=== PATIENT | male | born 1970 | race Caucasian/White ===

== ENCOUNTER 2019-10-01 21:51 | Outpatient (CLI) | payer OTHER, SELFPAY ==
--- NOTE | 2019-10-01 | XRR_ITS ---
PROCEDURE INFORMATION: Exam: XR Chest, 2 Views Exam date and time: 10/01/2019 11:42 PM Age: 49 years old Clinical indication: Screening exam; Other screening; Prior surgery; Surgery date: 6+ months; Additional info: Radon exposure TECHNIQUE: Imaging protocol: XR of the chest Views: 2 views. COMPARISON: CR Chest 2 views* [id number] 08/08/2018 5:15 PM FINDINGS: Lungs: Unremarkable. No consolidation. Pleural space: Unremarkable. No pleural effusion. No pneumothorax. Heart/Mediastinum: Unremarkable. No cardiomegaly. Bones/joints: Unremarkable. XR/XR chest 2V* [id number] IMPRESSION: No acute findings.
== END 2019-10-01 21:52 | disposition home or self-care (01) ==
PROVIDERS: Family Provider Family Medicine; PCP Family Medicine; Visit Provider Family Medicine
DX: Z77.123 Contact with and (suspected) exposure to radon and other naturally occurring radiation (principal)
CPT/HCPCS: 71046

== ENCOUNTER 2020-11-11 06:00 | Outpatient (RCR) | payer OTHER, SELFPAY | END 2020-11-22 23:59 | disposition home or self-care (01) | LOC: SPT 06:00 | PROVIDERS: PCP Family Medicine; Referring Provider Family Medicine; Visit Provider Family Medicine | DX: M54.17 Radiculopathy, lumbosacral region (principal) | CPT/HCPCS: 97110; 97162 ==

== ENCOUNTER 2020-11-23 06:00 | Outpatient (RCR) | payer OTHER, SELFPAY | END 2020-12-11 10:17 | disposition home or self-care (01) | LOC: SPT 06:00 | PROVIDERS: PCP Family Medicine; Referring Provider Family Medicine; Visit Provider Family Medicine | DX: M54.17 Radiculopathy, lumbosacral region (principal) | CPT/HCPCS: 97110 ==

== ENCOUNTER 2023-12-27 21:39 | Observation (INO) | payer OTHER, SELFPAY ==
[2023-12-27 21:40] VITALS: BP 114/75; PULSE 85; RESP 18; TEMP 36.4; O2SAT 99
--- NOTE | 2023-12-27 21:43 | ECG_ITS ---
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 Measurements Intervals [place] Rate: 87 P: 33 [place]: 140 QRS: -33 QRSD: 138 T: 53 QT: 364 QTc: 439 Interpretive Statements SINUS RHYTHM LEFT AXIS DEVIATION [QRS AXIS < -30] RIGHT BUNDLE BRANCH BLOCK [120+ ms QRS DURATION, UPRIGHT V1, 40+ ms S IN I/aVL/V4/V5/V6] No previous ECG available for comparison Electronically Signed On 12-28-2023 7:25:33 CDT by Drew Jefferson M.D. [id number]
[2023-12-27 22:27] LABS: Basophils % 0.4 %; Eosinophils # 0.3 10^3/uL (0.0-0.8); Eosinophils % 2.5 %; Hematocrit 47.2 % (37-53); Lymphocytes # 1.2 10^3/uL (0.8-4.8); Lymphocytes % 11.5 %; Mean Corpuscular HGB Conc 32.4 g/dL (30-55); Mean Corpuscular Hemoglobin 29.2 pg (27-33); Mean Corpuscular Volume 90.1 fl (82-101); Mean Platelet Volume 8.5 fL (7.4-10.4); Monocytes # 0.6 10^3/uL (0.2-0.9); Monocytes % 5.7 %; Neutrophils # 8.45 10^3/uL (1.8-7.7); Neutrophils % 79.6 %; Nucleated Red Blood Cells % 0 %; Platelet Count 230 10^3/cmm (157-399); Red Blood Count 5.24 10^6/uL (3.85-5.65); Red Cell Distribution Width 11.8 % (12.1-15.1); White Blood Count 10.61 10^3/uL (3.29-11.43)
--- NOTE | 2023-12-27 22:32 | XRR_ITS ---
PROCEDURE INFORMATION: Exam: XR Chest Exam date and time: 12/27/2023 10:34 PM Age: 53 years old Clinical indication: Other: N/v; Additional info: Weakness TECHNIQUE: Imaging protocol: Radiologic exam of the chest. Views: 1 view. COMPARISON: CR XR chest 2V* [id number] 11/02/2022 7:58 AM FINDINGS: Lungs: Minimal left basilar atelectasis or scarring. No definitive consolidation. Pleural spaces: No pleural effusion or pneumothorax. Heart/Mediastinum: The cardiomediastinal silhouette is within normal limits. Bones/joints: No acute osseous abnormalities are seen. XR/XR chest 1V portable [id number] IMPRESSION: No acute cardiopulmonary disease.
--- NOTE | 2023-12-27 22:42 | ED_ITS ---
HPI - Syncope 2 General: Chief Complaint: Syncope Stated Complaint: N\V\Passed Out\Heart Condition Time Seen by Provider: 12/27/23 22:17 History of Present Illness: 53-year-old man who presents to the [facility] after having multiple syncopal episodes. 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 He was off tonight. He took the dog downstairs and when he came back up the stairs he started to feel lightheaded and woozy. He sat down at the table and he passed out. says he was out for maybe 2 minutes. He never stopped breathing. He then shortly after while trying to get dressed to come to the hospital had an episode of vomiting. says he passed out briefly again here in the waiting room here at the emergency room. He has a history of atrial fibrillation but has been off meds because he had not had issues with it since he had had weight loss with diet changes. No recent fevers. He does not have any abdominal pain. No chest pain. No shortness of breath. No palpitations. Currently no focal motor deficits. No altered mental status. Review of Systems 2 Narrative: Constitutional symptoms: Negative except as documented in HPI. Skin symptoms: Negative except as documented in HPI. Eye symptoms: Negative except as documented in HPI. ENMT symptoms: Negative except as documented in HPI. Respiratory symptoms: Negative except as documented in HPI. Cardiovascular symptoms: Negative except as documented in HPI. Gastrointestinal symptoms: Negative except as documented in HPI. Genitourinary symptoms: Negative except as documented in HPI. Musculoskeletal symptoms: Negative except as documented in HPI. Neurologic symptoms: Negative except as documented in HPI. Psychiatric symptoms: Negative except as documented in HPI. Endocrine symptoms: Negative except as documented in HPI. PFSH ED 2 PFSH: Medical History (Updated 12/28/23 @ 00:31 by Janie Victor MD) Tremor Essential hypertension Dyslipidemia Family History Father Atrial fibrillation Grandmother Atrial fibrillation PATERNAL Mother Hypertension Social History Smoking and tobacco/nicotine status: former use of tobacco/nicotine Household members: spouse Marital status: Physical Exam 2 Narrative: EXAM NARRATIVE: General: Alert, no acute distress. Skin: Warm, appears slightly pale and diaphoretic. Head: Normocephalic, atraumatic. Neck: Supple, trachea midline. Eye: Extraocular movements are intact. Ears, nose, mouth and throat: mucosa moist. Cardiovascular: Regular, Normal peripheral perfusion. Respiratory: Lungs are clear to auscultation, respirations are non-labored, breath sounds are equal, Symmetrical chest wall expansion. Gastrointestinal: Soft, Nontender, Non distended, Normal bowel sounds. Musculoskeletal: Normal ROM, no deformity. Neurological: Alert and oriented, No focal neurological deficit observed. Psychiatric: Cooperative, appropriate mood & affect. Course 2 Vital Signs: Vital signs: Vital Signs Temperature 97.5 F L 12/27/23 21:40 Pulse Rate 80 12/28/23 00:00 Respiratory Rate 25 H 12/28/23 00:00 Blood Pressure 104/64 12/28/23 00:00 Pulse Oximetry 96 12/28/23 00:00 Oxygen Delivery Me thod Room Air 12/28/23 00:00 MDM - Syncope Medical Decision Making Medical decision making: Differential diagnosis including but not limited to and based on the above HPI, review of systems and physical exam in this patient with syncope: Vasovagal, orthostatics hypotension, cardiac dysrhythmia, myocardial infarction, infection and hypotension, Orders placed to evaluate differential diagnosis based on the above differential, HPI and physical exam Chest x-ray: No acute process. No infiltrate. No pneumothorax. No cardiomegaly. This was reviewed and interpreted by myself the ER physician. EKG: Rate 87 time 2143 normal sinus rhythm, No ST-T changes, no ectopy, right bundle branch block, This was reviewed and interpreted by myself the ER physician at 2150 Lab Review: Laboratory results were reviewed and interpreted by myself the emergency room physician. Lab work is fairly unremarkable at this point. BUN/creatinine are 14 and 1.1. Hemoglobin is 15. Troponin is negative. I reviewed the patient's medical record. Reexamination: Patient remains fairly stable. His blood pressure still low so ordered fluids. No signs of infection. His urine is clear and his chest x-ray is clear. No increased work of breathing. No altered mental status. No focal motor deficits. Consultation: I spoke with the hospitalist on-call Dr. Henry. He agrees to observation overnight to rule out any kind of cardiac dysrhythmias that would have caused the syncopal events and see if he does not improve his blood pressure with fluids. Assessment and plan: Syncope Dehydration Hypotension ?1500 ml Normal saline bolus in the emergency room. -I discussed the patient with the hospitalist on-call who is admitting the patient. - Discussed findings and plan with patient. Answered any questions. - All laboratory values were reviewed and interpreted personally by myself, the ER physician - All imaging was reviewed and interpreted personally by myself, the ER physician. - Evaluation and treatment of this problem were appropriate in the emergency setting Lab Data 12/27/23 22:17 12/27/23 22:17 Radiology Impressions Chest X-Ray 12/27/23 22:32 IMPRESSION: No acute cardiopulmonary disease. Laboratory Results WBC 10.61 10^3/uL (3.29-11.43) 12/27/23 22:17 RBC 5.24 10^6/uL (3.85-5.65) 12/27/23 22:17 Hgb 15.30 g/dL (11.27-16.99) 12/27/23 22:17 Hct 47.2 % (37-53) 12/27/23 22:17 MCV 90.1 fl (82-101) 12/27/23 22:17 MCH 29.2 pg (27-33) 12/27/23 22:17 MCHC 32.4 g/dL (30-55) 12/27/23 22:17 RDW 11.8 % (12.1-15.1) L 12/27/23 22:17 Plt Count 230 10^3/cmm (157-399) 12/27/23 22:17 MPV 8.5 fL (7.4-10.4) 12/27/23 22:17 Neut % (Auto) 79.6 % 12/27/23 22:17 Lymph % (Auto) 11.5 % 12/27/23 22:17 [place] % (Auto) 5.7 % 12/27/23 22:17 Eos % (Auto) 2.5 % 12/27/23 22:17 Baso % (Auto) 0.4 % 12/27/23 22:17 Neut # (Auto) 8.45 10^3/uL (1.8-7.7) H 12/27/23 22:17 Lymph # (Auto) 1.2 10^3/uL (0.8-4.8) 12/27/23 22:17 [place] # (Auto) 0.6 10^3/uL (0.2-0.9) 12/27/23 22:17 Eos # (Auto) 0.3 10^3/uL (0.0-0.8) 12/27/23 22:17 Baso # (Auto) 0.0 10^3/uL (0.0-0.1) 12/27/23 22:17 Nucleated RBC % (auto) 0 % 12/27/23 22:17 Nucleated RBCs # 0.0 /100WBC 12/27/23 22:17 D-Dimer 0.56 ug/mLFEU (0-0.59) 12/27/23 22:17 Sodium 139 mmol/L (136-145) 12/27/23 22:17 Potassium 3.8 mmol/L (3.5-5.1) 12/27/23 22:17 Chloride 104 mmol/L (98-107) 12/27/23 22:17 Carbon Dioxide 21 mmol/L (22-29) L 12/27/23 22:17 Anion Gap 17.8 (5-19) 12/27/23 22:17 BUN 14 mg/dL (6-20) 12/27/23 22:17 Creatinine 1.1 mg/dL (0.7-1.2) 12/27/23 22:17 GFR Calculation 69.5 mL/min (90-130) L 12/27/23 22:17 Glucose 97 mg/dL (65-115) 12/27/23 22:17 Calculated Osmolality 288 mOsm/kg (285-295) 12/27/23 22:17 Lactic Acid 2.4 mmol/L (0.5-2.2) H 12/27/23 22:17 Calcium 9.4 mg/dL (8.5-10.5) 12/27/23 22:17 Total Bilirubin 0.5 mg/dL (0.15-1.2) 12/27/23 22:17 AST 26 U/L (0-40) 12/27/23 22:17 ALT 38 U/L (0-41) 12/27/23 22:17 Alkaline Phosphatase 51 U/L (40-130) 12/27/23 22:17 Troponin T Baseline 7 ng/L (0-15) 12/27/23 22:17 C-Reactive Protein 3.0 mg/L (0.0-4.9) 12/27/23 22:17 Total Protein 7.3 g/dL (6.6-8.7) 12/27/23 22:17 Albumin 4.4 g/dL (3.5-5.2) 12/27/23 22:17 Globulin 2.9 g/dL (1.3-4.6) 12/27/23 22:17 Urine Color Dark yellow (Yellow) 12/27/23 23:30 Urine Appearance Clear (CLEAR) 12/27/23 23:30 Urine pH 5 (5-7) 12/27/23 23:30 Ur Specific [place] 1.025 (1.005-1.030) 12/27/23 23:30 Urine Protein Neg (Negative) 12/27/23 23:30 Urine Glucose (UA) Norm (Normal) 12/27/23 23:30 Urine Ketones 1+ (Negative) H 12/27/23 23:30 Urine Blood Neg (Negative) 12/27/23 23:30 Urine Nitrate Negative (Negative) 12/27/23 23:30 Urine Bilirubin Neg (Negative) 12/27/23 23:30 Urine Urobilinogen Norm mg/dL (Negative) 12/27/23 23:30 Ur Leukocyte Esterase Negative (Negative) 12/27/23 23:30 Urine RBC 0-4 /hpf (0-2) H 12/27/23 23:30 Urine WBC 0-4 /hpf (0-5) H 12/27/23 23:30 Ur Squamous Epith Cells 0-4 /hpf (0-5) H 12/27/23 23:30 Amorphous Sediment Not Reportable 12/27/23 23:30 Urine Bacteria Trace /hpf (NONE) 12/27/23 23:30 Hyaline Casts 0-4 /lpf H 12/27/23 23:30 Urine Mucus 2+ /hpf 12/27/23 23:30 All radiology interpretation(s) finalized by discharge Discharge Plan Discharge Patient Disposition: Admitted As Inpatient Clinical Impression: Dehydration Syncope Qualifiers: Syncope type: unspecified Qualified Code(s): R55 - Syncope and collapse Hypotension Qualifiers: Hypotension type: unspecified hypotension type Qualified Code(s): I95.9 - Hypotension, unspecified Condition: Stable Coding Level of Care Code ED Spare Parts Clerk for Javi Cobb
[2023-12-27 22:43] VITALS: BP 104/62; BP 108/59; BP 113/62; PULSE 78; PULSE 82; PULSE 85
[2023-12-27 22:50] LABS: Lactic Sepsis W/Reflex 2.4 mmol/L (0.5-2.2)
[2023-12-27 22:56] LABS: Alanine Aminotransferase 38 U/L (0-41); Albumin Level 4.4 g/dL (3.5-5.2); Alkaline Phosphatase 51 U/L (40-130); Anion Gap 17.8 (5-19); Aspartate Amino Transferase 26 U/L (0-40); Blood Urea Nitrogen 14 mg/dL (6-20); Calcium 9.4 mg/dL (8.5-10.5); Carbon Dioxide 21 mmol/L (22-29); Chloride 104 mmol/L (98-107); Creatinine Clr Calc Pharmacy 93.5112; Globulin 2.9 g/dL (1.3-4.6); Glomerular Filtration Rate 69.5 mL/min (90-130); Glucose 97 mg/dL (65-115); Osmolality Calculated 288 mOsm/kg (285-295); Potassium 3.8 mmol/L (3.5-5.1); Sodium 139 mmol/L (136-145); Total Bilirubin 0.5 mg/dL (0.15-1.2); Total Protein 7.3 g/dL (6.6-8.7)
[2023-12-27 22:57] VITALS: BP 111/66; PULSE 85; RESP 18; O2SAT 98
[2023-12-27 22:58] LABS: D Dimer 0.56 ug/mLFEU (0-0.59)
[2023-12-27 23:00] VITALS: BP 95/58; PULSE 85; RESP 15; O2SAT 98
[2023-12-27 23:05] LABS: Troponin(5th) Baseline 7 ng/L (0-15)
[2023-12-27 23:30] VITALS: BP 101/56; PULSE 80; RESP 21; O2SAT 100
[2023-12-27] MEDS: ondansetron 2 mg/ML SDV 2 mL 8 MG IVP (23:35)
[2023-12-28] VITALS (10 sets, daily range): BP systolic 102–137; BP diastolic 62–86; PULSE 80–115; RESP 16–25; TEMP 37–38.1; O2SAT 91–98
[2023-12-28 00:05] LABS: Bilirubin Urine Neg (Negative); Blood Urine Neg (Negative); Glucose Urine UA Norm (Normal); Ketones Urine 1+ (Negative); Leukocyte Esterase Urine Negative (Negative); Nitrate Urine Negative (Negative); Protein Urine Neg (Negative); RBC Urine 0-4 /hpf (0-2); Specific Gravity, Urine 1.025 (1.005-1.030); Urine Appearance Clear (CLEAR); Urine Color Dark Yellow (Yellow); Urobilinogen Urine Norm (Negative); pH Urine 5 (5-7)
[2023-12-28 00:06] LABS: Add Urine Culture? No; Bacteria Urine TRACE /hpf; Hyaline Casts Urine 0-4 /lpf; Mucus Urine 2+ /hpf; Squamous Epithelial Cell Urine 0-4 /hpf (0-5); WBC Urine 0-4 /hpf (0-5)
[2023-12-28 00:24] LABS: Reflex Lactate Order REFLEX LACTIC ORDERD
--- NOTE | 2023-12-28 00:32 | P.HP_ITS ---
Providers/Chief Complaint 2 Primary Care Provider: Vic Rubio MD Chief Complaint: N\V\Passed Out\Heart Condition History of Present Illness Colin Higginbotham is a 53 year old male with past medical history significant for lone atrial fibrillation, tremor disorder, hypertension, dyslipidemia who presents to the emergency department with syncope. Patient reports he was in his usual state of health till about 8:30 PM last night. He gone outside to let the dog out when he became dizzy. Came back inside and called his to take care of the dog so he did sit down at the kitchen table. He subsequently syncopized. Spouse reports he was out for about 2 minutes. She called EMS and put on speaker phone. She got up and attempt to eventually. He remained dizzy and nauseous. He went to the restroom and had an episode of significant emesis. This is reportedly very atypical for patient. Upon arriving to the emergency department, patient became diaphoretic while waiting in triage. This was followed by another episode of syncope. He was unconscious for about a minute and a half staff assisted him into the emergency department rooms. He was throwing up during this time as well. Of note, patient endorses associated symptoms malaise and fatigue. He does note that for the past week he has been more dizzy than usual. 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 He is just came off a 4-day in a row shifts. Patient does have a history of atrial fibrillation. Follows with cardiology. He was previously on Cardizem. He eventually lost some weight and proved his diet. He went as needed Cardizem. States he no longer even uses the as needed Cardizem. He does take an aspirin daily. He reports he has had some intermittent chest pains which is typical for him. He reports a movement disorder/tremor. He follows with [facility] annually. He denies known history of seizure disorder. He denies any tongue biting with these 2 syncopal episodes. Denies urinary incontinence. Does note bowel incontinence with the first episode. Spouse is bedside and very supportive. She is unsure if there was convulsive like activity as things happen so quickly. In the emergency department, patient was found to have soft blood pressure. Heart rate normal. Labs showed mild metabolic acidosis with bicarb of 21 and lactic acidosis with lactate of 2.4. Troponin was within normal limits. ECG revealed sinus rhythm with a right bundle. Chest x-ray was negative for acute findings. Review of Systems 2 Narrative: A complete review of systems was obtained and is negative except as stated in HPI. Medications/Allergies Home Medications Medication Instructions Recorded Confirmed Last Taken Type aspirin 325 mg tablet 325 mg PO DAILY 12/28/19 01/09/22 Unknown History cholecalciferol (vitamin D3) 50 50 mcg PO DAILY 12/28/19 01/09/22 Unknown History mcg (2,000 unit) capsule clonazepam 0.5 mg tablet 0.5 mg PO TID 12/28/19 01/09/22 Unknown History hydrocodone 10 mg-acetaminophen 1 tab PO Q6H PRN 12/28/19 01/09/22 Unknown History 325 mg tablet baclofen 20 mg tablet 20 mg PO .PRN 01/07/21 01/09/22 Unknown History fluticasone propionate 50 1 spray intranasal DAILY 01/07/21 01/09/22 Unknown History mcg/actuation nasal spray,suspension ondansetron 4 mg disintegrating 4 mg PO Q8H 01/07/21 01/09/22 Unknown History tablet polyethylene glycol 3350 17 17 g PO DAILY 01/07/21 01/09/22 Unknown History gram/dose oral powder (Miralax) diltiazem HCl 60 mg tablet 30 mg (1/2 x 60 mg) PO BID 01/09/22 01/09/22 Unknown Rx palpitations #90 tabs melatonin 10 mg tablet 10 mg PO DAILY 01/09/22 01/09/22 Unknown History pseudoephedrine HCl 30 mg tablet 30 mg PO Q4H PRN 01/09/22 01/09/22 Unknown History (Sudafed) Allergies Allergy/AdvReac Type Severity Reaction Status Date / Time No Known Allergies Allergy Verified 12/27/23 21:49 PFSH Acute 2 PFSH: Medical History (Updated 12/28/23 @ 01:25 by Colin Henry MD) DJD (degenerative joint disease), lumbar Atrial fibrillation Tremor Essential hypertension Dyslipidemia Surgical History History of repair of pyloric stenosis Family History Father Atrial fibrillation Grandmother Atrial fibrillation PATERNAL Mother Hypertension Social History Smoking and tobacco/nicotine status: former use of tobacco/nicotine Household members: spouse Marital status: Vitals/I&O/Wt Last Vital Signs Temp 97.5 F L 12/27/23 21:40 Pulse 80 12/28/23 00:00 Resp 25 H 12/28/23 00:00 BP 104/64 12/28/23 00:00 Pulse Ox 96 12/28/23 00:00 O2 Del Method Room Air 12/28/23 00:00 Weight last 48 hrs Weight 97.976 kg Physical Exam 2 Narrative: General: Patient is awake. Appears fatigued, but very pleasant. Head: Normocephalic. Atraumatic. EOM intact. Neck: No JVD. Cardiovascular: RRR. No gallops. No murmurs. Trace lower extremity edema. Lungs: Clear to auscultation, no use of accessory muscles, no crackles or wheezes. Skin: No jaundice. No rashes. Abdomen: Normal bowel sounds, abdomen soft and nontender. Genito Urinary: Genital exam not performed since complaints not related. Rectal: Rectal exam not performed since no symptoms indicated blood loss. Extremities: No cyanosis or clubbing. Musculoskeletal: No swollen or erythematous joints. Neurological: Moves all 4 extremities. Occasional myoclonic like jerking of upper extremities. Data 12/27/23 22:17 12/27/23 22:17 Micro: Microbiology 12/27/23 23:20 Blood Culture - Preliminary Blood SPECIMEN COLLECTED 12/27/23 23:20 Blood Culture - Preliminary Blood SPECIMEN COLLECTED A&P Assessment and plan (1) Syncope: Recurrent syncope concerning for possible cardiac arrhythmia, less likely orthostasis or seizure Continuous telemetry monitoring Obtain echocardiogram Venous Doppler ultrasounds of the carotids May benefit from head imaging pending clinical course Fall precautions Up only with assistance Seizure precautions Serial troponins Antiemetics as needed Consider neurology consult pending clinical course Qualifiers: Syncope type: unspecified Qualified Code(s): R55 - Syncope and collapse (2) Atrial fibrillation: History of lone atrial fibrillation Not currently on rate or rhythm control agents Telemetry monitoring Continue home aspirin (3) Tremor: Follows with [facility] neurology department Continue clonazepam 0.5 mg every morning Continue clonazepam 1 mg every afternoon (4) Essential hypertension: Not on pharmacological therapy Blood pressures currently soft Status post 2 L IV bolus in ED Start maintenance fluids for tonight Monitor vitals closely (5) DJD (degenerative joint disease), lumbar: Continue home [place] Continue home baclofen (6) Dyslipidemia: Currently diet controlled Plan DVT prophylaxis: Lovenox CODE STATUS: Full code Attestations 2 Medical Necessity Statement*: Patient presents with recurrent syncope concerning for possible cardiac arrhythmia with expected hospitalization not to cross 2 midnights for IV fluids, serial labs, Doppler study, echo, continuous telemetry monitoring and further workup pending these results. Coding Level of Care Code Acute Code for Chg Fwd Diagnoses Syncope R55 Syncope type: unspecified Atrial fibrillation I48.91 Tremor R25.1 Essential hypertension I10 DJD (degenerative joint disease), lumbar M47.816 Dyslipidemia E78.5
--- NOTE | 2023-12-28 00:33 | ECG_ITS ---
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 Measurements Intervals [place] Rate: 81 P: 47 MO: 144 QRS: -15 QRSD: 128 T: 51 QT: 354 QTc: 412 Interpretive Statements SINUS RHYTHM RIGHT BUNDLE BRANCH BLOCK [120+ ms QRS DURATION, UPRIGHT V1, 40+ ms S IN I/aVL/V4/V5/V6] Compared to ECG 12/27/2023 21:43:11 Left-axis deviation no longer present Electronically Signed On 12-28-2023 7:27:42 CDT by Drew Jefferson M.D. [id number]
[2023-12-28 00:44] LABS: Lactic Acid level (Lactate) 2.4 mmol/L (0.5-2.2)
[2023-12-28] MEDS: ketorolac 30 mg/mL INJ 15 MG IVP (00:51)
[2023-12-28] MEDS: sodium chloride 0.9% 1,000 ML 999 ML IV (00:52)
[2023-12-28] MEDS: sodium chloride 0.9% 500 ML 999 ML IV (00:52)
--- NOTE | 2023-12-28 01:12 | USCV_ITS ---
AnahyColin Age: 53 Gender: M : 1970 Exam Date: 12/28/2023 03:11 Ordering Phys: Colin Henry MD Technologist: EULA Exam Location: [facility] [place] Indication: recurrent syncope BP: 104 / 64 HR: 90 Rhythm: Sinus Technical Quality: Adequate MEASUREMENTS (Male / Female) Normal Values 2D ECHO LV Diastolic Diameter PLAX 4.4 cm 4.2 - 5.9 / 3.9 - 5.3 cm IVS Diastolic Thickness 1.7 cm 0.6 - 1.0 / 0.6 - 0.9 cm IVS Systolic Thickness 2.4 cm LVPW Diastolic Thickness 1.5 cm 0.6 - 1.0 / 0.6 - 0.9 cm LVPW Systolic Thickness 1.9 cm LVOT Diameter 2.3 cm LV Ejection Fraction 2D Teich 63.3 % LV Ejection Fraction MOD 2C 60.1 % LV Ejection Fraction 2C AL 63.0 % LA Diameter 3.6 cm LA Sys Volume AL 61.4 cm cubed LA Sys Volume Index AL 27.1 cm cubed/m squared Aorta at Sinotubular Diameter 3.2 cm IVC Diameter 1.5 cm M-MODE LA Ao Ratio MM 1.0 AV Cusp Separation MM 2.2 cm DOPPLER AV Peak Velocity 129.0 cm/s LVOT Peak Velocity 101.0 cm/s AV Area Cont Eq vti 3.5 cm squared AV Area Cont Eq pk 3.1 cm squared MV Peak Velocity 85.0 cm/s MV Area PHT 5.4 cm squared Mitral E to A Ratio 1.0 TV Peak E Velocity 48.0 cm/s PV Peak Velocity 89.0 cm/s FINDINGS Left Ventricle Left ventricle is normal in size. LV systolic function is normal with EF of 60-65%. No regional wall motion abnormalities are seen. Right Ventricle Normal in size and function Right Atrium Normal in size Left Atrium Normal in size Mitral Valve Structurally normal mitral valve. Trace mitral regurgitation. Aortic Valve Structurally normal mitral aortic valve. No significant stenosis or regurgitation. Tricuspid Valve Insufficient TR jet to evaluate RVSP Pulmonic Valve Not well visualized Pericardium Normal Aorta Normal in size IVC Appears to be normal CONCLUSIONS LV systolic function is normal with EF of 60-65% Trace mitral regurgitation No comparison studies are available Drew Jefferson MD (Electronically Signed) Final Date: 28 December 2023 08:10 S
--- NOTE | 2023-12-28 01:12 | USCV_ITS ---
Colin Higginbotham Age: 53 Gender: M : 1970 Exam Date: 12/28/2023 02:36 Ordering Phys: Colin Henry MD Technologist: EULA [place] [facility] [place]ication: recurrent syncope Risk Factors: recurrent syncope Previous Vascular Surgery: none Right Brachial BP: 104 / 64 Left Brachial BP: / Right Left Velocity (cm/s) Spectral Plaque Velocity (cm/s) Spectral Plaque Syst/Diast Broadening Syst/Diast Broadening 122.20/14.60 None None Prox CCA 148.30/ 14.60 None None 118.30/18.50 None None Mid CCA 131.30/ 25.20 None None 118.30/15.90 Min None Distal CCA 129.20/ 23.10 Min None 119.60/23.70 Min None Prox ICA 122.80/ 32.60 Min None 97.80/ 21.60 Min None Mid ICA 93.70 / 30.20 Min None 82.10/ 27.90 Min None Distal ICA 44.10 / 12.90 None None 146.50 Min None ECA 100.20 Min None 1.00 ICA/CCA 1.00 Antegrade Vertebral Antegrade 57.70/ 19.10 cm/s 66.20/ 16.90 cm/s Tri Subclavian Tri 117.7 115.5 0 0 FINDINGS Comparison: none available. No significant elevation of systolic or diastolic velocities. Waveforms are normal. Minimal carotid plaque. CONCLUSIONS Bilateral ICA stenosis less than 50%. Minimal carotid atherosclerosis. Dr. Omaira Marley DO (Electronically Signed) Final Date: 28 December 2023 07:29 S
[2023-12-28 01:14] LABS: Troponin 5 2HR 6.17 ng/L (0-15); Troponin 5 2HR Delta -0.83 ABS# (0-10)
[2023-12-28] MEDS: CLONazepam 0.5 mg Tablet 1 MG PO (02:35)
[2023-12-28] MEDS: enoxaparin 40 mg/0.4 mL Syringe SUBCUT (02:36)
[2023-12-28] MEDS: dextrose 5%-sod chloride 0.45% 1,000 ML 75 ML IV (02:36)
[2023-12-28] MEDS: HYDROcodone-acetaminophen 10-325 mg Tablet 1 TAB PO ×3 (02:58→14:05)
[2023-12-28] MEDS: calcium carbonate 500 mg Chew Tablet 1000 MG PO ×2 (02:58→08:29)
[2023-12-28] MEDS: baclofen 10 mg Tablet 20 MG PO ×2 (02:59→11:01)
[2023-12-28 04:13] LABS: Basophils % 0.3 %; Eosinophils # 0.1 10^3/uL (0.0-0.8); Eosinophils % 0.7 %; Hematocrit 43.7 % (37-53); Lymphocytes # 0.3 10^3/uL (0.8-4.8); Lymphocytes % 3.5 %; Mean Corpuscular HGB Conc 32.7 g/dL (30-55); Mean Corpuscular Hemoglobin 29.5 pg (27-33); Mean Corpuscular Volume 90.3 fl (82-101); Mean Platelet Volume 8.5 fL (7.4-10.4); Monocytes # 0.2 10^3/uL (0.2-0.9); Monocytes % 3.1 %; Neutrophils # 6.94 10^3/uL (1.8-7.7); Neutrophils % 92.1 %; Nucleated Red Blood Cells % 0 %; Platelet Count 190 10^3/cmm (157-399); Red Blood Count 4.84 10^6/uL (3.85-5.65); Red Cell Distribution Width 11.7 % (12.1-15.1); White Blood Count 7.52 10^3/uL (3.29-11.43)
[2023-12-28 04:30] LABS: Troponin 5 6HR 6.73 ng/L (0-15); Troponin 5 6HR Delta -0.27 ng/L (0-12)
--- NOTE | 2023-12-28 04:33 | ECG_ITS ---
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 Measurements Intervals [place] Rate: 94 P: 43 NV: 156 QRS: -34 QRSD: 135 T: 45 QT: 334 QTc: 418 Interpretive Statements SINUS RHYTHM POSSIBLE LEFT ATRIAL ENLARGEMENT [-0.1mV P-WAVE IN V1/V2] LEFT AXIS DEVIATION [QRS AXIS < -30] RIGHT BUNDLE BRANCH BLOCK [120+ ms QRS DURATION, UPRIGHT V1, 40+ ms S IN I/aVL/V4/V5/V6] Compared to ECG 12/28/2023 00:50:48 Left-axis deviation now present Electronically Signed On 12-28-2023 7:27:29 CDT by Drew Jefferson M.D. [id number]
[2023-12-28 04:40] LABS: Alanine Aminotransferase 33 U/L (0-41); Albumin Level 4.1 g/dL (3.5-5.2); Alkaline Phosphatase 44 U/L (40-130); Anion Gap 15.3 (5-19); Aspartate Amino Transferase 22 U/L (0-40); Blood Urea Nitrogen 17 mg/dL (6-20); Calcium 8.7 mg/dL (8.5-10.5); Carbon Dioxide 22 mmol/L (22-29); Chloride 106 mmol/L (98-107); Creatinine Clr Calc Pharmacy 95.8478; Globulin 2.2 g/dL (1.3-4.6); Glomerular Filtration Rate 69.5 mL/min (90-130); Glucose 105 mg/dL (65-115); Magnesium 1.5 mg/dL (1.7-2.3); Osmolality Calculated 290 mOsm/kg (285-295); Phosphorus 1.8 mg/dL (2.5-4.5); Potassium 4.3 mmol/L (3.5-5.1); Sodium 139 mmol/L (136-145); Total Bilirubin 0.9 mg/dL (0.15-1.2); Total Protein 6.3 g/dL (6.6-8.7)
[2023-12-28] MEDS: CLONazepam 0.5 mg Tablet PO (05:53)
[2023-12-28] MEDS: aspirin 325 mg Tablet PO (08:29)
[2023-12-28] MEDS: ondansetron 4 MG Tablet PO (08:46)
--- NOTE | 2023-12-28 12:45 | PM.DCS ---
Discharge Providers Date of Admission: 12/28/23 01:29 Date of Discharge: December 28, 2023 Attending Provider at Admission: Colin Henry MD Attending Provider at Discharge: Clarisa Gallo MD Primary Care Provider: Vic Rubio MD Diagnoses at Discharge Discharge Diagnosis (1) Syncope: Status: Acute Qualifiers: Syncope type: unspecified Qualified Code(s): R55 - Syncope and collapse (2) Atrial fibrillation: Status: Acute (3) Tremor: Status: Acute (4) Essential hypertension: Status: Acute (5) DJD (degenerative joint disease), lumbar: Status: Acute (6) Dyslipidemia: Status: Acute Reason for Visit Reason for Visit: N\V\Passed Out\Heart Condition Discharge Data Studies Completed and Pending Completed Studies During Hospitalization Category Date Time Status XR chest 1V portable [id number] Stat Exams 12/27/23 22:32 Completed CV. echo complete* [id number] Stat Ultrasound 12/28/23 01:12 Completed US carotid duplex bilateral [CV carotid duplex BI* Ultrasound 12/28/23 01:12 Completed [id number]] Stat Pending at discharge Category Date Time Status Blood Culture Stat Lab 12/27/23 23:20 Results Respiratory Panel 2 Routine Lab 12/28/23 11:57 Uncollected Radiology Impressions Chest X-Ray 12/27/23 22:32 IMPRESSION: No acute cardiopulmonary disease. Laboratory Results WBC 7.52 10^3/uL (3.29-11.43) 12/28/23 03:59 RBC 4.84 10^6/uL (3.85-5.65) 12/28/23 03:59 Hgb 14.30 g/dL (11.27-16.99) 12/28/23 03:59 Hct 43.7 % (37-53) 12/28/23 03:59 MCV 90.3 fl (82-101) 12/28/23 03:59 MCH 29.5 pg (27-33) 12/28/23 03:59 MCHC 32.7 g/dL (30-55) 12/28/23 03:59 RDW 11.7 % (12.1-15.1) L 12/28/23 03:59 Plt Count 190 10^3/cmm (157-399) 12/28/23 03:59 MPV 8.5 fL (7.4-10.4) 12/28/23 03:59 Neut % (Auto) 92.1 % 12/28/23 03:59 Lymph % (Auto) 3.5 % 12/28/23 03:59 [place] % (Auto) 3.1 % 12/28/23 03:59 Eos % (Auto) 0.7 % 12/28/23 03:59 Baso % (Auto) 0.3 % 12/28/23 03:59 Neut # (Auto) 6.94 10^3/uL (1.8-7.7) 12/28/23 03:59 Lymph # (Auto) 0.3 10^3/uL (0.8-4.8) L 12/28/23 03:59 [place] # (Auto) 0.2 10^3/uL (0.2-0.9) 12/28/23 03:59 Eos # (Auto) 0.1 10^3/uL (0.0-0.8) 12/28/23 03:59 Baso # (Auto) 0.0 10^3/uL (0.0-0.1) 12/28/23 03:59 Nucleated RBC % (auto) 0 % 12/28/23 03:59 Nucleated RBCs # 0.0 /100WBC 12/28/23 03:59 D-Dimer 0.56 ug/mLFEU (0-0.59) 12/27/23 22:17 Sodium 139 mmol/L (136-145) 12/28/23 03:59 Potassium 4.3 mmol/L (3.5-5.1) 12/28/23 03:59 Chloride 106 mmol/L (98-107) 12/28/23 03:59 Carbon Dioxide 22 mmol/L (22-29) 12/28/23 03:59 Anion Gap 15.3 (5-19) 12/28/23 03:59 BUN 17 mg/dL (6-20) 12/28/23 03:59 Creatinine 1.1 mg/dL (0.7-1.2) 12/28/23 03:59 GFR Calculation 69.5 mL/min (90-130) L 12/28/23 03:59 Glucose 105 mg/dL (65-115) 12/28/23 03:59 Calculated Osmolality 290 mOsm/kg (285-295) 12/28/23 03:59 Lactic Acid 2.4 mmol/L (0.5-2.2) H 12/27/23 22:17 Lactic Acid (Sepsis) 2.4 mmol/L (0.5-2.2) H 12/27/23 23:15 Calcium 8.7 mg/dL (8.5-10.5) 12/28/23 03:59 Phosphorus 1.8 mg/dL (2.5-4.5) L 12/28/23 03:59 Magnesium 1.5 mg/dL (1.7-2.3) L 12/28/23 03:59 Total Bilirubin 0.9 mg/dL (0.15-1.2) 12/28/23 03:59 AST 22 U/L (0-40) 12/28/23 03:59 ALT 33 U/L (0-41) 12/28/23 03:59 Alkaline Phosphatase 44 U/L (40-130) 12/28/23 03:59 Troponin T Baseline 7 ng/L (0-15) 12/27/23 22:17 Troponin T 120 Minute 6.17 ng/L (0-15) 12/28/23 00:37 Delta Troponin T -0.83 ABS# (0-10) L 12/28/23 00:37 Troponin T Hi Sens 6Hr 6.73 ng/L (0-15) 12/28/23 03:59 Troponin T Hi Sens 6Hr Delta -0.27 ng/L (0-12) L 12/28/23 03:59 C-Reactive Protein 3.0 mg/L (0.0-4.9) 12/27/23 22:17 Total Protein 6.3 g/dL (6.6-8.7) L 12/28/23 03:59 Albumin 4.1 g/dL (3.5-5.2) 12/28/23 03:59 Globulin 2.2 g/dL (1.3-4.6) 12/28/23 03:59 Urine Color Dark yellow (Yellow) 12/27/23 23:30 Urine Appearance Clear (CLEAR) 12/27/23 23:30 Urine pH 5 (5-7) 12/27/23 23:30 Ur Specific [place] 1.025 (1.005-1.030) 12/27/23 23:30 Urine Protein Neg (Negative) 12/27/23 23:30 Urine Glucose (UA) Norm (Normal) 12/27/23 23:30 Urine Ketones 1+ (Negative) H 12/27/23 23:30 Urine Blood Neg (Negative) 12/27/23 23:30 Urine Nitrate Negative (Negative) 12/27/23 23:30 Urine Bilirubin Neg (Negative) 12/27/23 23:30 Urine Urobilinogen Norm mg/dL (Negative) 12/27/23 23:30 Ur Leukocyte Esterase Negative (Negative) 12/27/23 23:30 Urine RBC 0-4 /hpf (0-2) H 12/27/23 23:30 Urine WBC 0-4 /hpf (0-5) H 12/27/23 23:30 Ur Squamous Epith Cells 0-4 /hpf (0-5) H 12/27/23 23:30 Amorphous Sediment Not Reportable 12/27/23 23:30 Urine Bacteria Trace /hpf (NONE) 12/27/23 23:30 Hyaline Casts 0-4 /lpf H 12/27/23 23:30 Urine Mucus 2+ /hpf 12/27/23 23:30 Vitals Last Vital Signs Temp 100.6 F H 12/28/23 11:41 Pulse 97 12/28/23 11:41 Resp 16 12/28/23 11:41 BP 110/69 12/28/23 11:41 Pulse Ox 96 12/28/23 11:41 O2 Del Method Room Air 12/28/23 11:41 Discharge Plan Discharge Patient Disposition: Home Condition: Stable Prescriptions: Continued cholecalciferol (vitamin D3) 50 mcg (2,000 unit) capsule 50 mcg PO DAILY hydrocodone-acetaminophen 10-325 mg tablet 1 tab PO Q6H PRN (Reason: Back Pain) aspirin 325 mg tablet 325 mg PO DAILY clonazepam 0.5 mg tablet 0.5 mg PO TID baclofen 20 mg tablet 20 mg PO BID PRN (Reason: Back Pain) fluticasone propionate 50 mcg/actuation spray,suspension 1 spray intranasal DAILY Rx Instructions: administer into each nostril polyethylene glycol 3350 [Miralax] 17 gram/dose powder 17 g PO DAILY ondansetron 4 mg tablet,disintegrating 4 mg PO Q8H PRN (Reason: Nausea And Vomiting) pseudoephedrine HCl [Sudafed] 30 mg tablet 30 mg PO Q4H PRN (Reason: sinus headache) melatonin 10 mg tablet 10 mg PO BEDTIME Discharge Orders: Discharge Order (Routine); Ordered 12/28/23 Ordered By: Clarisa Gallo Other Ambulatory Orders: MCT/Event Monitor 30 Days (Routine) Timeframe: 1 Month Facility: [facility] - Location: Radiology Ordered By: Clarisa Gallo Referrals: Sean Bacon MD [Physician] - 01/16/24 12:30 pm Vic Rubio MD [Primary Care Provider] - 01/03/24 1:00 pm Discharge Diet: Cardiac Discharge Activity: Resume usual activity Patient Instructions: Dehydration (DC), Syncope (DC), Hypotension (DC), Opioid Safety Discharge Attestations Time Spent in Discharge Care*: greater than 30 min Quality Metrics Clinical Quality Measures [ No reported AMI, CVA or VTE this stay] Coding Level of Care Code Acute Code for Chg Fwd Diagnoses Syncope R55 Syncope type: unspecified Atrial fibrillation I48.91 Tremor R25.1 Essential hypertension I10 DJD (degenerative joint disease), lumbar M47.816 Dyslipidemia E78.5
[2023-12-28] MEDS: magnesium sulfate premix 2 GM/50 ML PIGGYBACK IV (14:05)
[2023-12-28] MEDS: phosphorus 250 mg Tablet PO (14:05)
--- NOTE | 2023-12-28 14:09 | CT_ITS ---
WS: [id number] CT HEAD NONCONTRAST HISTORY: syncope TECHNIQUE: Contiguous axial imaging performed through the brain in 2.5 mm imaging. Bone and soft tiss ue windows. Sagittal and coronal reformats reviewed. All CT scans at [facility] use at least one of these dose optimization techniques: automated exposure control; mA and/or kV adjustment per pa tient size (includes targeted exams where dose is matched to clinical indication); or iterative recon struction. DLP: 1184.65 mGy.cm COMPARISON: None available. No acute intracranial hemorrhage, midline shift or mass effect. No atrophy or prior infarcts or herniation. Ventricles: Normal size with no hydrocephalus. Paranasal sinuses: As visualized are clear. Mastoid air cells: Well pneumatized. Calvarium and scalp: Skull is intact with no soft tissue edema or swelling. CT/CT head wo con* [id number] IMPRESSION: Negative head CT.
--- NOTE | 2023-12-28 14:34 | PC.NURSE ---
off unit to ct scan head w/o contrast
[2023-12-28 16:13] LABS: Adenovirus Not Detected (NOT DETECT); Chlamydia Pneumoniae Not Detected (NOT DETECT); Coronavirus 229E,HKU1,NL63,OC4 Not Detected (NOT DETECT); Human Metapneumovirus Not Detected (NOT DETECT); Human Rhinovirus/Enterovirus Not Detected (NOT DETECT); Influenza A Not Detected (NOT DETECT); Influenza A H1 Not Detected (NOT DETECT); Influenza A H1-2009 Not Detected (NOT DETECT); Influenza A H3 Not Detected (NOT DETECT); Influenza B Not Detected (NOT DETECT); Mycoplasma Pneumoniae Not Detected (NOT DETECT); Parainfluenza Virus Type 1 Not Detected (NOT DETECT); Parainfluenza Virus Type 2 Not Detected (NOT DETECT); Parainfluenza Virus Type 3 Not Detected (NOT DETECT); Parainfluenza Virus Type 4 Not Detected (NOT DETECT); Respiratory Syncytial Virus A Not Detected (NOT DETECT); Respiratory Syncytial Virus B Not Detected (NOT DETECT); SARS-COV-2 Not Detected (NOT DETECT)
--- NOTE | 2023-12-28 16:30 | PC.NURSE ---
Discharge Note Patient discharged to home via wheelchair accompanied by ROBERTA Murguia to do his holter monitor application in [facility]. Discharge instructions reviewed with patient and/or inventory representative. Mobile pharmacy medications and/or prescriptions provided. Belongings/home medications returned.
--- NOTE | 2023-12-28 18:43 | PM.DCS ---
Discharge Providers Date of Admission: 12/28/23 01:29 Date of Discharge: December 28, 2023 Attending Provider at Admission: Colin Henry MD Attending Provider at Discharge: Clarisa Gallo MD Primary Care Provider: Vic Rubio MD Diagnoses at Discharge Discharge Diagnosis (1) Syncope: Status: Resolved Qualifiers: Syncope type: unspecified Qualified Code(s): R55 - Syncope and collapse (2) Atrial fibrillation: Status: Acute (3) Tremor: Status: Acute (4) Essential hypertension: Status: Acute (5) DJD (degenerative joint disease), lumbar: Status: Acute (6) Dyslipidemia: Status: Acute Reason for Visit Reason for Visit: N\V\Passed Out\Heart Condition Hospital Course Hospital Course Patient admitted for dizziness syncope after episodes of nausea and vomiting. Does have a history of A-fib in the past however is no longer on Cardizem at home. Sees cardiology as an outpatient. Orthostatic hypotension was ruled out. Patient received IV fluids and felt better. Discussed with cardiology. Will discharge patient home with an event monitor. Respiratory viral panel was obtained however negative. Echo reviewed. Patient to follow-up with cardiology as outpatient. Follow-up call was performed with the patient and he did not have the same symptoms again. He feels better. Physical Exam Narrative: General: Patient is awake. Alert oriented x 3 no acute respiratory distress Head normocephalic atraumatic, EOMI Cardiovascular: Normal S1-S2 no gross murmurs or gallops appreciated. Lungs: Clear to auscultation no crackles no wheezes Abdomen soft nontender. Extremities within normal limits. Neurological: Moves all 4 extremities. Discharge Data Studies Completed and Pending Completed Studies During Hospitalization Category Date Time Status CT head wo con* [id number] Urgent Cat Scan 12/28/23 14:09 Completed XR chest 1V portable [id number] Stat Exams 12/27/23 22:32 Completed CV. echo complete* [id number] Stat Ultrasound 12/28/23 01:12 Completed US carotid duplex bilateral [CV carotid duplex BI* Ultrasound 12/28/23 01:12 Completed [id number]] Stat Pending at discharge Category Date Time Status Blood Culture Stat Lab 12/27/23 23:20 Results Radiology Impressions Chest X-Ray 12/27/23 22:32 IMPRESSION: No acute cardiopulmonary disease. Head CT 12/28/23 14:09 IMPRESSION: Negative head CT. Laboratory Results WBC 7.52 10^3/uL (3.29-11.43) 12/28/23 03:59 RBC 4.84 10^6/uL (3.85-5.65) 12/28/23 03:59 Hgb 14.30 g/dL (11.27-16.99) 12/28/23 03:59 Hct 43.7 % (37-53) 12/28/23 03:59 MCV 90.3 fl (82-101) 12/28/23 03:59 MCH 29.5 pg (27-33) 12/28/23 03:59 MCHC 32.7 g/dL (30-55) 12/28/23 03:59 RDW 11.7 % (12.1-15.1) L 12/28/23 03:59 Plt Count 190 10^3/cmm (157-399) 12/28/23 03:59 MPV 8.5 fL (7.4-10.4) 12/28/23 03:59 Neut % (Auto) 92.1 % 12/28/23 03:59 Lymph % (Auto) 3.5 % 12/28/23 03:59 Delta % (Auto) 3.1 % 12/28/23 03:59 Eos % (Auto) 0.7 % 12/28/23 03:59 Baso % (Auto) 0.3 % 12/28/23 03:59 Neut # (Auto) 6.94 10^3/uL (1.8-7.7) 12/28/23 03:59 Lymph # (Auto) 0.3 10^3/uL (0.8-4.8) L 12/28/23 03:59 Delta # (Auto) 0.2 10^3/uL (0.2-0.9) 12/28/23 03:59 Eos # (Auto) 0.1 10^3/uL (0.0-0.8) 12/28/23 03:59 Baso # (Auto) 0.0 10^3/uL (0.0-0.1) 12/28/23 03:59 Nucleated RBC % (auto) 0 % 12/28/23 03:59 Nucleated RBCs # 0.0 /100WBC 12/28/23 03:59 D-Dimer 0.56 ug/mLFEU (0-0.59) 12/27/23 22:17 Sodium 139 mmol/L (136-145) 12/28/23 03:59 Potassium 4.3 mmol/L (3.5-5.1) 12/28/23 03:59 Chloride 106 mmol/L (98-107) 12/28/23 03:59 Carbon Dioxide 22 mmol/L (22-29) 12/28/23 03:59 Anion Gap 15.3 (5-19) 12/28/23 03:59 BUN 17 mg/dL (6-20) 12/28/23 03:59 Creatinine 1.1 mg/dL (0.7-1.2) 12/28/23 03:59 GFR Calculation 69.5 mL/min (90-130) L 12/28/23 03:59 Glucose 105 mg/dL (65-115) 12/28/23 03:59 Calculated Osmolality 290 mOsm/kg (285-295) 12/28/23 03:59 Lactic Acid 2.4 mmol/L (0.5-2.2) H 12/27/23 22:17 Lactic Acid (Sepsis) 2.4 mmol/L (0.5-2.2) H 12/27/23 23:15 Calcium 8.7 mg/dL (8.5-10.5) 12/28/23 03:59 Phosphorus 1.8 mg/dL (2.5-4.5) L 12/28/23 03:59 Magnesium 1.5 mg/dL (1.7-2.3) L 12/28/23 03:59 Total Bilirubin 0.9 mg/dL (0.15-1.2) 12/28/23 03:59 AST 22 U/L (0-40) 12/28/23 03:59 ALT 33 U/L (0-41) 12/28/23 03:59 Alkaline Phosphatase 44 U/L (40-130) 12/28/23 03:59 Troponin T Baseline 7 ng/L (0-15) 12/27/23 22:17 Troponin T 120 Minute 6.17 ng/L (0-15) 12/28/23 00:37 Delta Troponin T -0.83 ABS# (0-10) L 12/28/23 00:37 Troponin T Hi Sens 6Hr 6.73 ng/L (0-15) 12/28/23 03:59 Troponin T Hi Sens 6Hr Delta -0.27 ng/L (0-12) L 12/28/23 03:59 C-Reactive Protein 3.0 mg/L (0.0-4.9) 12/27/23 22:17 Total Protein 6.3 g/dL (6.6-8.7) L 12/28/23 03:59 Albumin 4.1 g/dL (3.5-5.2) 12/28/23 03:59 Globulin 2.2 g/dL (1.3-4.6) 12/28/23 03:59 Urine Color Dark yellow (Yellow) 12/27/23 23:30 Urine Appearance Clear (CLEAR) 12/27/23 23:30 Urine pH 5 (5-7) 12/27/23 23:30 Ur Specific [place] 1.025 (1.005-1.030) 12/27/23 23:30 Urine Protein Neg (Negative) 12/27/23 23:30 Urine Glucose (UA) Norm (Normal) 12/27/23 23:30 Urine Ketones 1+ (Negative) H 12/27/23 23:30 Urine Blood Neg (Negative) 12/27/23 23:30 Urine Nitrate Negative (Negative) 12/27/23 23:30 Urine Bilirubin Neg (Negative) 12/27/23 23:30 Urine Urobilinogen Norm mg/dL (Negative) 12/27/23 23:30 Ur Leukocyte Esterase Negative (Negative) 12/27/23 23:30 Urine RBC 0-4 /hpf (0-2) H 12/27/23 23:30 Urine WBC 0-4 /hpf (0-5) H 12/27/23 23:30 Ur Squamous Epith Cells 0-4 /hpf (0-5) H 12/27/23 23:30 Amorphous Sediment Not Reportable 12/27/23 23:30 Urine Bacteria Trace /hpf (NONE) 12/27/23 23:30 Hyaline Casts 0-4 /lpf H 12/27/23 23:30 Urine Mucus 2+ /hpf 12/27/23 23:30 Adenovirus (PCR) Not detected (NOT DETECT) 12/28/23 13:59 C. pneumoniae DNA (PCR) Not detected (NOT DETECT) 12/28/23 13:59 Coronavirus 229E (PCR) Not detected (NOT DETECT) 12/28/23 13:59 Human Metapneumovir PCR Not detected (NOT DETECT) 12/28/23 13:59 Influenza A (H1) PCR Not detected (NOT DETECT) 12/28/23 13:59 Influ A (H1/09) PCR Not detected (NOT DETECT) 12/28/23 13:59 Influenza A (H3) PCR Not detected (NOT DETECT) 12/28/23 13:59 Influenza Type A (PCR) Not detected (NOT DETECT) 12/28/23 13:59 Influenza Type B (PCR) Not detected (NOT DETECT) 12/28/23 13:59 M. pneumoniae (PCR) Not detected (NOT DETECT) 12/28/23 13:59 Parainfluenza 1 (PCR) Not detected (NOT DETECT) 12/28/23 13:59 Parainfluenza 2 (PCR) Not detected (NOT DETECT) 12/28/23 13:59 Parainfluenza 3 (PCR) Not detected (NOT DETECT) 12/28/23 13:59 Parainfluenza 4 (PCR) Not detected (NOT DETECT) 12/28/23 13:59 RSV Type A (PCR) Not detected (NOT DETECT) 12/28/23 13:59 RSV Type B (PCR) Not detected (NOT DETECT) 12/28/23 13:59 Entero/Rhino (PCR) Not detected (NOT DETECT) 12/28/23 13:59 SARS-CoV-2 (PCR) Not detected (NOT DETECT) 12/28/23 13:59 Vitals Last Vital Signs Temp 99.8 F H 12/28/23 16:16 Pulse 95 12/28/23 16:16 Resp 25 H 12/28/23 16:16 BP 102/62 12/28/23 16:16 Pulse Ox 91 12/28/23 16:16 O2 Del Method Room Air 12/28/23 16:00 Discharge Plan Discharge Patient Disposition: Home Condition: Stable Prescriptions: Continued cholecalciferol (vitamin D3) 50 mcg (2,000 unit) capsule 50 mcg PO DAILY hydrocodone-acetaminophen 10-325 mg tablet 1 tab PO Q6H PRN (Reason: Back Pain) aspirin 325 mg tablet 325 mg PO DAILY clonazepam 0.5 mg tablet 0.5 mg PO TID baclofen 20 mg tablet 20 mg PO BID PRN (Reason: Back Pain) fluticasone propionate 50 mcg/actuation spray,suspension 1 spray intranasal DAILY Rx Instructions: administer into each nostril polyethylene glycol 3350 [Miralax] 17 gram/dose powder 17 g PO DAILY ondansetron 4 mg tablet,disintegrating 4 mg PO Q8H PRN (Reason: Nausea And Vomiting) pseudoephedrine HCl [Sudafed] 30 mg tablet 30 mg PO Q4H PRN (Reason: sinus headache) melatonin 10 mg tablet 10 mg PO BEDTIME Discharge Orders: Discharge Order (Routine); Ordered 12/28/23 Ordered By: Clarisa Gallo Referrals: Sean Bacon MD [Physician] - 01/16/24 12:30 pm Vic Rubio MD [Primary Care Provider] - 01/03/24 1:00 pm Discharge Diet: Cardiac Discharge Activity: Resume usual activity Patient Instructions: Dehydration (DC), Syncope (DC), Hypotension (DC), Holter Monitor (GEN), Opioid Safety Discharge Attestations Time Spent in Discharge Care*: greater than 30 min Quality Metrics Clinical Quality Measures [ No reported AMI, CVA or VTE this stay] Coding Level of Care Code Acute Code for Chg Fwd Diagnoses Syncope R55 Syncope type: unspecified Atrial fibrillation I48.91 Tremor R25.1 Essential hypertension I10 DJD (degenerative joint disease), lumbar M47.816 Dyslipidemia E78.5
== END 2023-12-28 16:20 | disposition home or self-care (01) ==
LOC: ER 12-28 00:31 → CSU 12-28 01:29
PROVIDERS: Emergency Medicine; Admitting Provider Internal Medicine; Emergency Provider Emergency Medicine; PCP Family Medicine; Visit Provider Internal Medicine
DX: R55 Syncope and collapse (principal); I48.91 Unspecified atrial fibrillation; R25.1 Tremor, unspecified; I10 Essential (primary) hypertension; M47.816 Spondylosis without myelopathy or radiculopathy, lumbar region; E78.5 Hyperlipidemia, unspecified; Z82.49 Family history of ischemic heart disease and other diseases of the circulatory system; E86.0 Dehydration
CPT/HCPCS: 36415; 70450; 71045; 80053; 81001; 83605; 83735; 84100; 84484; 85025; 85378; 86140; 87040; 87486; 87581; 87633; 93005; 93306; 93880; 96365; 96372; 96375; 99285; G0378; J1650; J1885; J2405; J3475; J7030; J7040; J7799; Q0162